=== PATIENT | female | born 2000 | race Caucasian/White ===

== ENCOUNTER 2019-01-18 00:42 | Outpatient (CLI) | payer OTHER, SELFPAY ==
--- NOTE | 2019-01-18 08:00 | DI.US_ITS ---
SYMPTOM/DIAGNOSIS: ENLARGED THYROID E04.9 THYROID ULTRASOUND: The right thyroid lobe measures 6.3 x 2.0 x 1.9 cm and is acoustically heterogeneous. Normal color flow is demonstrated. The isthmus measures 4.2 cm in thickness. The left thyroid lobe measures 6.4 x 1.7 x 2.4 m and contains a lower pole nodule with a maximum diameter of 7 x 5 x 5 mm. The left thyroid lobe also is acoustically heterogeneous. SUMMARY: Thyromegaly is demonstrated. A 7 x 5 x 5 mm left thyroid lobe nodule is demonstrated. The study is otherwise unremarkable.
== END 2019-01-18 01:02 ==
PROVIDERS: PCP Nurse Practitioner Family; Visit Provider Nurse Practitioner Family
DX: E04.9 Nontoxic goiter, unspecified (principal); E01.0 Iodine-deficiency related diffuse (endemic) goiter; E04.1 Nontoxic single thyroid nodule
CPT/HCPCS: 76536

== ENCOUNTER 2019-02-02 10:09 | Emergency (ER) | payer OTHER, SELFPAY ==
[2019-02-02 10:12] VITALS: BP 131/85; PULSE 83; RESP 16; TEMP 37; O2SAT 97
--- NOTE | 2019-02-02 10:25 | ED.GENADUL_ITS ---
Discharge Plan Disposition Patient Disposition: HOME Condition: Stable Discharge Details Chief Complaint: Vascular Clinical Impression: Pain of right calf Primary Care Provider: Estefanía Walters ED Provider: Rickie Bay Home Meds and New Rx's Prescriptions: Continued norgestimate-ethinyl estradiol [Sprintec (28)] 0.25-35 mg-mcg tablet 1 tab PO DAILY Qty: 84 RF: 3 cetirizine [Zyrtec] 10 MG tablet,chewable 10 mg PO DAILY Qty: 30 RF: 0 propranolol 10 MG tablet 10 mg PO Q12H PRN Qty: 60 RF: 1 bupropion HCl [Wellbutrin XL] 150 mg tablet extended release 24 hr 150 mg PO QAM Qty: 60 RF: 1 Discharge Instructions Instructions: Leg Pain (ED) Additional Instructions: you can take 1000mg tylenol and 600mg ibuprofen every 6 hours for pain as needed if pain continues in a week see your primary care provider if you have severe worsening of pain, difficulty breathing or fevers return to the emergency department Medical Decision Making 18 yo female with no significant pmhx comes in with right calf pain for several days and intermittent sharp chest pain. She denies radiation of the chest pain, no diaphoresis or n/v, no pain with exertion. she has not had any recent travel or surgeries. She has pain of the mid calf, no erythema or swelling noted and intact distal sensation with full rom of the ankle, foot and knee, no recent falls or trauma. I suspect muscle cramp but will obtain u/s to eval for dvt. Her chest pain seems like costochondritis given reproducible on exam. Her wells score is low, is on control so can't use PERC to exclude PE. Will send d dimer. HEart score is 0 so unlikely acs. Normal lung sounds and has no pain now and is intermittent so doubt ptx and nof ever or cough so doubt pna imaging and labs unremarkable, d dimer below 500 so no indication for PE. Will d/c home and advised f/u with pcp and return precautions given Differential Diagnosis muscle cramp, dvt, pe Imaging Data Radiologic Study: Attestation: I personally reviewed and interpreted this imaging study as follows: Imaging: Ultrasound Radiologist's impression: DUPLEX VENOUS ULTRASOUND RIGHT LOWER EXTREMITY: 02/02 Duplex evaluation of the deep venous system was performed according to the usual protocol. The deep veins are freely compressible throughout to the level of the popliteal veins. There is normal doppler flow visible throughout and there is excellent flow augmentation with manual calf compression. CONCLUSION: No evidence of deep venous thrombosis. Lab Data Lab results reviewed: Yes I reviewed the patient's lab results. ECG Data Attestation: I personally reviewed and interpreted this ECG (s) as follows: Prior ECG tracings: not available for review Interpretation: sinus rhythm, rate of 78, pr 144, qtc 424 HPI General Mode of arrival: ambulatory . Date/Time Provider Initiated Documentation: 02/02/19 10:12 . Limitations to Documentation: no limitations . Information obtained by: patient . History of Present Illness 18 year old F presents to the emergency department with the chief complaint of right calf pain, described as moderate, Quality is described as aching, and is localized to the right and lower extremity. Patient reports no radiation. Patient started experiencing this day(s) (4) and it has been constant. No relieving factors improve symptom(s), No exacerbating factors reported . Patient notes chest pain. Patient did receive the following treatments prior to arrival, none Related Data Home Medications Medication Instructions Recorded Confirmed cetirizine [Zyrtec] 10 mg PO DAILY #30 tab.chew 10/17/14 02/02/19 propranolol 10 mg PO Q12H PRN #60 tab 01/27/18 02/02/19 norgestimate 0.25 mg-ethinyl 1 tab PO DAILY #84 tab 05/10/18 02/02/19 estradiol 35 mcg tablet bupropion HCl 150 mg 24 hr tablet, 150 mg PO QAM #60 tab 09/13/18 02/02/19 extended release Previous Rx's Medication Instructions Recorded propranolol 10 mg PO Q12H PRN #60 tab 01/27/18 norgestimate 0.25 mg-ethinyl 1 tab PO DAILY #84 tab 05/10/18 estradiol 35 mcg tablet bupropion HCl 150 mg 24 hr tablet, 150 mg PO QAM #60 tab 09/13/18 extended release Allergies Allergy/AdvReac Type Severity Reaction Status Date / Time No Known Allergies Allergy Unverified 02/02/19 10:18 General Stated Complaint: Vascular CELINE: 3 Review of Systems Review of Systems All systems reviewed & are unremarkable except as noted in HPI and below Constitutional Denies chills, Denies fever(s) and Denies weakness Cardiovascular Denies dyspnea Respiratory Denies cough and Denies dyspnea Gastrointestinal Denies abdominal pain, Denies nausea and Denies vomiting Musculoskeletal Denies joint swelling Neurologic Denies weakness Endocrine Denies heat intolerance [facility] Medical History (Updated 05/10/18 @ 10:37 by Paola Jimenez NP) Closed fracture of radius Enlarged thyroid gland (Chronic 06/17/17) Myopia Wears glasses Social History Smoking/Tobacco Use Status: Never Alcohol Intake: current Alcohol Intake frequency: holidays/special occasions only Substance use type: does not use Do you feel safe at home: Yes Do you feel safe in your relationship?: Yes Additional Social history: College student studying pastry/baking. Exam Const General: no acute distress Orientation: alert HENMT Head: normal to inspection Ears: external ears normal General nose exam: external nose normal Mouth: moist mucous membranes Eyes General: appearance normal, both eyes and all related structures Neck Neck: normal visual inspection Resp Effort & Inspection: normal respiratory effort and able to speak in complete sentences Cardio Rate: regular rate Skin General skin exam: no rashes or lesions noted Neuro General: alert and oriented x3 Extrem General: normal to inspection Psych Mental Status: mental status grossly normal Course Vital Signs Temperature 37 C 02/02/19 10:12 Pulse 83 02/02/19 10:12 Respiratory Rate 16 02/02/19 10:12 Blood Pressure 131/85 02/02/19 10:12 Pulse Oximetry 97 02/02/19 10:12 Temperature 37 C 02/02/19 10:12 Temperature Source Temporal Artery Scan 02/02/19 10:12 Pulse 83 02/02/19 10:12 Respiratory Rate 16 02/02/19 10:12 Respiratory Effort Non-Labored 02/02/19 10:17 Blood Pressure 131/85 02/02/19 10:12 Blood Pressure Position Sitting 02/02/19 10:12 Pulse Oximetry 97 02/02/19 10:12 Oxygen Delivery Method Room Air 02/02/19 10:12 Oxygen Flow Rate 0 02/02/19 10:12 Pain Level 3 02/02/19 10:12
[2019-02-02 10:42] VITALS: RESP 16
[2019-02-02 10:48] LABS: Abs Immature Grans 0.01 k/cumm (0.0-0.09); Absolute Basophil Count 0.04 k/cumm (0.0-0.2); Absolute Lymphocyte Count 1.79 k/cumm (1.2-3.4); Absolute Monocyte Count 0.55 k/cumm (0.11-0.7); Absolute Neutrophil Count 2.56 k/cumm (1.2-6.7); Basophils % 0.8; Eosinophils % 3.9; HCT 43.4 % (36.0-46.0); HGB 14.4 g/dL (12.0-15.5); Immature Grans % 0.2; Lymphocytes % 34.8; Mean Corp. HGB Concentration 33.2 g/dL (32.0-36.0); Mean Corpuscular Hemoglobin 29.8 pg (27.0-33.0); Mean Corpuscular Volume 89.9 fL (80-95); Mean Platelet Volume 9.5 fL (8.0-11.0); Monocytes % 10.7; Neutrophils % 49.6; Platelet Count 396 x1000/uL (130-400); RBC 4.83 m/cumm (4.00-5.20); RBC Distribution Width 12.4 % (11.7-14.6); White Blood Cell Count 5.15 k/cumm (4.4-10.8)
[2019-02-02 11:04] LABS: ALT 27 U/L (12-78); AST 10 U/L (15-37); Albumin 3.9 g/dL (3.4-5.0); Alkaline Phosphatase 70 U/L (46-116); Anion Gap 10.9 mmol/L (3-11); BUN 8 mg/dL (7-18); Bilirubin, Total 0.5 mg/dL (0.2-1.0); CO2 26.1 mmol/L (21.0-32.0); Calcium 9.2 mg/dL (8.5-10.1); Chloride 105 mmol/L (98-107); Glucose 85 mg/dL (70-100); Potassium 3.8 mmol/L (3.5-5.1); Sodium 142 mmol/L (136-145); Total Protein 8.7 g/dL (6.4-8.2)
[2019-02-02 11:06] LABS: PTT Activated 24.6 sec (21.0-31.4); Prothrombin Time 9.7 sec (9.3-11.0)
[2019-02-02 11:24] LABS: D-Dimer 499 ng/mlFEU (<500)
[2019-02-02 11:28] LABS: Troponin I < 0.05 ng/mL (0.00-0.06)
[2019-02-02 11:42] VITALS: BP 117/69; PULSE 69; RESP 16; TEMP 37.3; O2SAT 100
== END 2019-02-02 11:50 | disposition home or self-care (01) ==
PROVIDERS: Emergency Provider Emergency Medicine; PCP Nurse Practitioner Family
DX: M79.661 Pain in right lower leg (principal); R07.9 Chest pain, unspecified
CPT/HCPCS: 36415; 80053; 81025; 93005; 99285; 83735; 84484; 85025; 85379; 85610; 85730; 93010; 93971; J3490